=== PATIENT | female | born 1985 | race Hispanic/Latino ===

== ENCOUNTER 2018-08-22 04:45 | Emergency (ER) | payer SELFPAY ==
[2018-08-22 04:56] VITALS: BP 113/68
--- NOTE | 2018-08-22 06:46 | Emergency Department Report ---
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 there is no fever no chills no open wound MD Complaint: foot injury (blisters ) Onset/Timin -: days(s) Injury: Foot: Right, Left (blister less than 1 cm ) Place: work Severity: mild Severity scale (0 -10): 2 Improves With: rest Worsens With: weight bearing, movement, palpation Associated Symptoms: ambulatory, other (blister ) - Related Data Previous Rx's Medication Instructions Recorded Last Taken Type Naproxen 500 mg PO BID PRN #30 tablet 08/22/18 Unknown Rx Terbinafine HCl [Lamisil] 1 applicatio TP BID 14 Days #1 each 08/22/18 Unknown Rx Allergies Allergy/AdvReac Type Severity Reaction Status Date / Time No Known Allergies Allergy Unverified 08/22/18 04:50 ED Review of Systems ROS: Stated complaint: FOOT PAIN/NUMBNESS Other details as noted in HPI Constitutional: denies: chills, fever Eyes: denies: eye pain, eye discharge, vision change ENT: denies: ear pain, throat pain Respiratory: denies: cough, shortness of breath, wheezing Cardiovascular: denies: chest pain, palpitations Endocrine: no symptoms reported Gastrointestinal: denies: abdominal pain, nausea, diarrhea Genitourinary: denies: urgency, dysuria, discharge Musculoskeletal: other (blister bialt fee sole in step ). denies: back pain, joint swelling, arthralgia Skin: denies: rash, lesions Neurological: denies: headache, weakness, paresthesias Psychiatric: denies: anxiety, depression Hematological/Lymphatic: denies: easy bleeding, easy bruising ED Past Medical Hx - Past Medical History Previous Medical History?: No - Surgical History Past Surgical History?: Yes Additional Surgical History: ectopic - Social History Smoking Status: Current Every Day Smoker Substance Use Type: None - Medications Home Medications: Home Medications Medication Instructions Recorded Confirmed Last Taken Type Naproxen 500 mg PO BID PRN #30 tablet 08/22/18 Unknown Rx Terbinafine HCl [Lamisil] 1 applicatio TP BID 14 Days #1 each 08/22/18 Unknown Rx ED Physical Exam - General Limitations: No Limitations General appearance: alert, in no apparent distress - Head Head exam: Present: atraumatic, normocephalic - Eye Eye exam: Present: normal appearance - ENT ENT exam: Present: mucous membranes moist - Neck Neck exam: Present: normal inspection - Respiratory Respiratory exam: Present: normal lung sounds bilaterally. Absent: respiratory distress - Cardiovascular Cardiovascular Exam: Present: regular rate, normal rhythm. Absent: systolic murmur, diastolic murmur, rubs, gallop - GI/Abdominal GI/Abdominal exam: Present: soft, normal bowel sounds - Rectal Rectal exam: Present: deferred - Extremities Exam Extremities exam: Present: normal inspection, full ROM, tenderness (bisters bilat fee with tinea plantar instep no open wound distal pulse +2, ), normal capillary refill. Absent: pedal edema, joint swelling, calf tenderness - Back Exam Back exam: Present: normal inspection, full ROM - Neurological Exam Neurological exam: Present: alert, oriented X3 - Psychiatric Psychiatric exam: Present: normal affect, normal mood - Skin Skin exam: Present: warm, dry, intact, normal color, other (boot blisters as above ). Absent: rash ED Course Vital Signs 08/22/18 04:50 Temperature 97.8 F Pulse Rate 89 Respiratory 18 Rate Blood Pressure 113/68 O2 Sat by Pulse 97 Oximetry ED Lower Extremity MDM - Medical Decision Making bilat foot blister less than dime size 2x2 and tape on each pt is ambulatory advised to purchase mole skin covering, will tx tinea with antifungal, naproxen prn pain referral to podiatry , pt is currently ambulatory with steady gait at this time, will dc to home in stable condition at this time. Critical care attestation.: If time is entered above; I have spent that time in minutes in the direct care of this critically ill patient, excluding procedure time. ED Disposition Clinical Impression: Blister of foot Qualifiers: Encounter type: initial encounter Laterality: unspecified laterality Qualified Code(s): S90.829A - Blister (nonthermal), unspecified foot, initial encounter Tinea pedis Qualifiers: Laterality: bilateral Qualified Code(s): B35.3 - Tinea pedis Disposition: DC-01 TO HOME OR SELFCARE Is pt being admited?: No Does the pt Need Aspirin: No Condition: Stable Instructions: Antifungals (On the skin), Blister (ED) Additional Instructions: obtain otc mole skin for blister care Prescriptions: Naproxen 500 mg PO BID PRN #30 tablet PRN Reason: pain Terbinafine HCl [Lamisil] 1 applicatio TP BID 14 Days #1 each Referrals: LEANDER GUADARRAMA DPM [Referring] - 3-5 Days Forms: Work/School Release Form(ED) Time of Disposition: 06:48
== END 2018-08-22 06:54 | disposition home or self-care (01) ==
LOC: ED 04:45
DX: S90.821A Blister (nonthermal), right foot, initial encounter (principal); S90.822A Blister (nonthermal), left foot, initial encounter; B35.3 Tinea pedis; F17.200 Nicotine dependence, unspecified, uncomplicated; X58.XXXA Exposure to other specified factors, initial encounter; Y93.89 Activity, other specified; Y92.89 Other specified places as the place of occurrence of the external cause; Y99.8 Other external cause status
CPT/HCPCS: 99281

== ENCOUNTER 2018-12-28 04:38 | Emergency (ER) | payer SELFPAY ==
[2018-12-28 05:12] LABS: Basophils # (Auto) 0.1 K/mm3 (0.0-0.1); Basophils % (Auto) 0.8 % (0.0-1.8); Eosinophils # (Auto) 0.1 K/mm3 (0.0-0.4); Eosinophils % (Auto) 0.6 % (0.0-4.3); Hematocrit 43.3 % (30.3-42.9); Lymphocytes % (Auto) 40.7 % (13.4-35.0); Mean Corpuscular HGB Conc 35 % (30-34); Mean Corpuscular Volume 93 fl (79-97); Monocytes # (Auto) 0.5 K/mm3 (0.0-0.8); Monocytes % (Auto) 5.5 % (0.0-7.3); Platelet Count 328 K/mm3 (140-440); Red Blood Count 4.68 M/mm3 (3.65-5.03); Red Cell Distribution Width 12.8 % (13.2-15.2)
[2018-12-28 05:38] LABS: Alanine Aminotransferase 12 units/L (7-56); Albumin 4.5 g/dL (3.9-5); BUN/Creatinine Ratio 10; Blood Urea Nitrogen 9 mg/dL (7-17); Calcium 10.4 mg/dL (8.4-10.2); Hemolysis Index 10
[2018-12-28 06:00] LABS: Bilirubin,Urine SM (Negative); Blood,Urine NEG (Negative); Color,Urine Amber (Yellow); Mucus,Urine 3+ /HPF
[2018-12-28 06:06] LABS: Protein,Urine >500 mg/dL (Negative)
--- NOTE | 2018-12-28 06:15 | Emergency Department Report ---
ED General Adult HPI - General Chief complaint: Dizziness Stated complaint: SOB/DIZZINESS/NUMBNESS Time Seen by Provider: 12/28/18 06:13 Source: patient Mode of arrival: Ambulatory Limitations: No Limitations - History of Present Illness Initial comments: 33-year-old female who has been feeling weak for the past few days. It became more pronounced at work. She felt dizzy but she did not pass out. Force encouraged her to go to the emergency department. She states that she is not taking any sort of herbs for diuretics. Complained of some right flank pain and right hip pain unrelated to injury. She had no chest pain. No pleuritic type symptoms. She denies cough or shortness of breath. She's had no recent fever chills vomiting or diarrhea. She admits to poor by mouth intake lately. -: Gradual, days(s) Severity scale (0 -10): 0 Associated Symptoms: denies other symptoms, weakness - Related Data Previous Rx's Medication Instructions Recorded Last Taken Type Naproxen 500 mg PO BID PRN #30 tablet 08/22/18 Unknown Rx Terbinafine HCl [Lamisil] 1 applicatio TP BID 14 Days #1 each 08/22/18 Unknown Rx Nitrofurantoin [place]/M-Cryst 100 mg PO Q12HR #14 capsule 12/28/18 Unknown Rx [Macrobid CAP] traMADol [Ultram] 50 mg PO Q6HR PRN #7 tablet 12/28/18 Unknown Rx Allergies Allergy/AdvReac Type Severity Reaction Status Date / Time No Known Allergies Allergy Unverified 08/22/18 04:50 ED Review of Systems ROS: Stated complaint: SOB/DIZZINESS/NUMBNESS Other details as noted in HPI Constitutional: weakness. denies: chills, fever Eyes: denies: eye pain, eye discharge, vision change ENT: denies: ear pain, throat pain Respiratory: denies: cough, shortness of breath, wheezing Cardiovascular: denies: chest pain, palpitations Endocrine: no symptoms reported Gastrointestinal: denies: abdominal pain, nausea, diarrhea Genitourinary: as per HPI (right flank pain). denies: urgency, dysuria, discharge Musculoskeletal: denies: back pain, joint swelling, arthralgia Skin: denies: rash, lesions Neurological: denies: headache, weakness, paresthesias Psychiatric: denies: anxiety, depression Hematological/Lymphatic: denies: easy bleeding, easy bruising ED Past Medical Hx - Past Medical History Previous Medical History?: No - Surgical History Past Surgical History?: Yes Additional Surgical History: ectopic - Social History Smoking Status: Current Every Day Smoker Substance Use Type: Alcohol, Marijuana - Medications Home Medications: Home Medications Medication Instructions Recorded Confirmed Last Taken Type Naproxen 500 mg PO BID PRN #30 tablet 08/22/18 Unknown Rx Terbinafine HCl [Lamisil] 1 applicatio TP BID 14 Days #1 each 08/22/18 Unknown Rx Nitrofurantoin [place]/M-Cryst 100 mg PO Q12HR #14 capsule 12/28/18 Unknown Rx [Macrobid CAP] traMADol [Ultram] 50 mg PO Q6HR PRN #7 tablet 12/28/18 Unknown Rx ED Physical Exam - General Limitations: No Limitations General appearance: alert, in no apparent distress - Head Head exam: Present: atraumatic, normocephalic - Eye Eye exam: Present: normal appearance - ENT ENT exam: Present: mucous membranes dry (mildly) - Neck Neck exam: Present: normal inspection. Absent: tenderness, meningismus - Respiratory Respiratory exam: Present: normal lung sounds bilaterally. Absent: respiratory distress - Cardiovascular Cardiovascular Exam: Present: regular rate, normal rhythm. Absent: systolic murmur, diastolic murmur, rubs, gallop - GI/Abdominal GI/Abdominal exam: Present: soft, normal bowel sounds. Absent: distended, tenderness, guarding, rebound, rigid - Extremities Exam Extremities exam: Present: normal inspection, normal capillary refill. Absent: pedal edema, joint swelling, calf tenderness - Back Exam Back exam: Present: normal inspection. Absent: CVA tenderness (R), CVA tenderness (L), muscle spasm, paraspinal tenderness, vertebral tenderness - Neurological Exam Neurological exam: Present: alert, oriented X3, CN II-XII intact. Absent: motor sensory deficit - Psychiatric Psychiatric exam: Present: normal affect, normal mood - Skin Skin exam: Present: warm, dry, intact, normal color. Absent: rash ED Course Vital Signs 12/28/18 12/28/18 12/28/18 04:42 06:07 08:00 Temperature 97.5 F L 97.8 F 97.8 F Pulse Rate 115 H 99 H 81 Respiratory 20 16 13 Rate Blood Pressure 119/79 Blood Pressure 115/79 113/79 [Left] O2 Sat by Pulse 100 100 100 Oximetry ED Medical Decision Making - Lab Data Result diagrams: 12/28/18 04:55 12/28/18 04:55 Laboratory Results - last 24 hr 12/28/18 12/28/18 12/28/18 04:55 04:55 04:55 WBC 9.9 RBC 4.68 Hgb 15.0 H Hct 43.3 H MCV 93 MCH 32 MCHC 35 H RDW 12.8 L Plt Count 328 Lymph % (Auto) 40.7 H [place] % (Auto) 5.5 Eos % (Auto) 0.6 Baso % (Auto) 0.8 Lymph # 4.0 [place] # 0.5 Eos # 0.1 Baso # 0.1 Seg Neutrophils % 52.4 Seg Neutrophils # 5.2 Sodium 141 Potassium 3.0 L Chloride 102.1 Carbon Dioxide 21 L Anion Gap 21 BUN 9 Creatinine 0.9 Estimated GFR > 60 BUN/Creatinine Ratio 10 Glucose 106 H Calcium 10.4 H Total Bilirubin 0.70 AST 14 ALT 12 Alkaline Phosphatase 78 Total Protein 7.5 Albumin 4.5 Albumin/Globulin Ratio 1.5 HCG, Qual Negative Urine Color Urine Turbidity Urine pH Ur Specific [place] Urine Protein Urine Glucose (UA) Urine Ketones Urine Blood Urine Nitrite Urine Bilirubin Urine Urobilinogen Ur Leukocyte Esterase Urine WBC (Auto) Urine RBC (Auto) U Epithel Cells (Auto) Urine Mucus 12/28/18 05:15 WBC RBC Hgb Hct MCV MCH MCHC RDW Plt Count Lymph % (Auto) [place] % (Auto) Eos % (Auto) Baso % (Auto) Lymph # [place] # Eos # Baso # Seg Neutrophils % Seg Neutrophils # Sodium Potassium Chloride Carbon Dioxide Anion Gap BUN Creatinine Estimated GFR BUN/Creatinine Ratio Glucose Calcium Total Bilirubin AST ALT Alkaline Phosphatase Total Protein Albumin Albumin/Globulin Ratio HCG, Qual Urine Color [place] Urine Turbidity Slightly-cloudy Urine pH 5.0 Ur Specific [place] 1.039 H Urine Protein >500 Urine Glucose (UA) Neg Urine Ketones 20 Urine Blood Neg Urine Nitrite Neg Urine Bilirubin Sm Urine Urobilinogen 2.0 Ur Leukocyte Esterase Neg Urine WBC (Auto) 6.0 Urine RBC (Auto) 6.0 U Epithel Cells (Auto) 4.0 Urine Mucus 3+ - Radiology Data Radiology results: report reviewed (nap) Critical care attestation.: If time is entered above; I have spent that time in minutes in the direct care of this critically ill patient, excluding procedure time. ED Disposition Clinical Impression: Hypokalemia, Dehydration, Flank pain, chronic Proteinuria Qualifiers: Proteinuria type: unspecified Qualified Code(s): R80.9 - Proteinuria, unspecified UTI (urinary tract infection) Qualifiers: Urinary tract infection type: site unspecified Hematuria presence: with hematuria Qualified Code(s): N39.0 - Urinary tract infection, site not specified; R31.9 - Hematuria, unspecified Disposition: DC- TO HOME OR SELFCARE Is pt being admited?: No Does the pt Need Aspirin: No Condition: Stable Instructions: Hypokalemia (ED), Urinary Tract Infection in Women (ED), Dehydration (ED) Additional Instructions: Further evaluation with a primary care physician as necessary. Follow-up on urine culture. You have some protein in your urine. This should be rechecked. Medication as directed. Prescriptions: Nitrofurantoin [place]/M-Cryst [Macrobid CAP] 100 mg PO Q12HR #14 capsule traMADol [Ultram] 50 mg PO Q6HR PRN #7 tablet PRN Reason: Pain Referrals: MELVIN AMIN MD [Primary Care Provider] - 2-3 Days Time of Disposition: 08:40
[2018-12-28 06:25] LABS: Ictotest,Urine Negative (Negative)
[2018-12-28] MEDS ORDERED: NACL 0.9% 1000 ML 1,000 ML IV ONE (06:39)
[2018-12-28] MEDS ORDERED: K-DUR PO ONE (06:39)
[2018-12-28 07:28] LABS: INR 1.14 (0.87-1.13); Partial Thromboplastin Time 25.2 Sec. (24.2-36.6)
[2018-12-28 08:04] VITALS: BP 113/79
--- NOTE | 2018-12-28 08:12 | Ultrasound Report ---
PROCEDURE: US PELVIC COMPLETE, US TRANSVAGINAL TECHNIQUE: Transabdominal and transvaginal grayscale and color Doppler pelvic ultrasound HISTORY: r flank RLQ pain COMPARISONS: None FINDINGS: Anteverted uterus measures 7.2 x 4.2 x 4.7 cm. Myometrium is within normal limits. Endometrium is travis ogeneous and measures 5 mm in thickness. Small functional cysts are noted in both ovaries, which are otherwise unremarkable and measures 3.3 x 1.3 x 2.4 cm on the right and 2.9 x 1.5 x 2.5 cm in the left. Normal color Doppler evaluation of the ovaries. IMPRESSION: Unremarkable pelvic ultrasound. Specifically, the right ovary appears normal. This document is electronically signed by Ramana Hammer MD., December 28 2018 08:10:24 AM ET
--- NOTE | 2018-12-28 08:24 | Ultrasound Report ---
PROCEDURE: US RENAL BILAT TECHNIQUE: Grayscale and color Doppler ultrasound evaluation of the kidneys HISTORY: r flank RLQ pain COMPARISONS: None FINDINGS: Examination is partially compromised by limited acoustic window The right kidney measures 9.7 cm in the left kidney measures 9.4 cm in length. No hydronephrosis. Wit hin the right lower pole cortex there is a 4 mm nonshadowing echogenic focus, which may represent a s mall angiomyolipoma or some ectopic fat, both of which are of no clinical consequence. No nephrolithi asis identified. No abdominal ascites or free fluid in Contreras's pouch. The bladder is incompletely distended. IMPRESSION: No hydronephrosis or nephrolithiasis. This document is electronically signed by Ramana Hammer MD., December 28 2018 08:22:35 AM ET
== END 2018-12-28 09:21 | disposition home or self-care (01) ==
LOC: ED 04:38
DX: E87.6 Hypokalemia (principal); E86.0 Dehydration; N39.0 Urinary tract infection, site not specified
CPT/HCPCS: 36415; 76770; 76830; 76856; 80053; 81001; 83735; 84702; 84703; 85025; 85610; 85730; 87086; 93005; 93010; 96360; 96361; 99284; J7030

== ENCOUNTER 2019-01-15 00:06 | Emergency (ER) | payer OTHER ==
[2019-01-15] MEDS ORDERED: BACTRIM DS PO ONE (01:34)
[2019-01-15] MEDS ORDERED: TYLENOL #3 PO ONE (01:35)
[2019-01-15] MEDS ORDERED: TORADOL IM ONE (01:35)
--- NOTE | 2019-01-15 02:02 | Emergency Department Report ---
ED General Adult HPI - General Chief complaint: Skin Rash Stated complaint: INSECT BITE LEG AND ARMS Time Seen by Provider: 01/15/19 01:30 Source: patient Mode of arrival: Ambulatory Limitations: No Limitations - History of Present Illness Initial comments: Patient is a 33-year-old white female with no past medical history who presents to the ED with complaint of acute onset persistent painful itchy erythematous maculopapular nonfluctuant rash with swelling on that thigh and hip for the last 2 days after being bitten by an unknown insect. Patient denies fever, chills, nausea, vomiting, dizziness, headache, chest pain or shortness of breath. Patient states that the pain is worse with any palpation or ambulation. MD Complaint: Painful rash on right leg -: Sudden, days(s) (2) Location: lower extremity (right thigh) Radiation: non-radiation Severity scale (0 -10): 8 Quality: burning, aching, sharp Consistency: constant Improves with: none Worsens with: movement Associated Symptoms: denies other symptoms, rash (erythematous maculopapular nonfluctuant rash). denies: confusion, chest pain, cough, diaphoresis, fever/chills, headaches, loss of appetite, malaise, nausea/vomiting, shortness of breath, syncope, weakness Treatments Prior to Arrival: none - Related Data Previous Rx's Medication Instructions Recorded Last Taken Type Naproxen 500 mg PO BID PRN #30 tablet 08/22/18 Unknown Rx Terbinafine HCl [Lamisil] 1 applicatio TP BID 14 Days #1 each 08/22/18 Unknown Rx Nitrofurantoin [place]/M-Cryst 100 mg PO Q12HR #14 capsule 12/28/18 Unknown Rx [Macrobid CAP] Ibuprofen [Motrin] 800 mg PO Q8HR PRN #24 tablet 01/15/19 Unknown Rx Sulfamethoxazole/Trimethoprim 1 each PO Q12H #20 tablet 01/15/19 Unknown Rx [Bactrim DS TAB] traMADol [Ultram 50 MG tab] 50 mg PO Q6HR PRN #14 tablet 01/15/19 Unknown Rx Allergies Allergy/AdvReac Type Severity Reaction Status Date / Time No Known Allergies Allergy Unverified 08/22/18 04:50 ED Review of Systems ROS: Stated complaint: INSECT BITE LEG AND ARMS Other details as noted in HPI Comment: All other systems reviewed and negative Constitutional: denies: chills, fever Eyes: denies: eye pain, eye discharge, vision change ENT: denies: ear pain, throat pain Respiratory: denies: cough, shortness of breath, wheezing Cardiovascular: denies: chest pain, palpitations Endocrine: no symptoms reported Gastrointestinal: denies: abdominal pain, nausea, diarrhea Genitourinary: denies: urgency, dysuria, discharge Musculoskeletal: denies: back pain, joint swelling, arthralgia Skin: rash (erythematous maculopapular nonfluctuant rash on right thigh), change in color (erythematous maculopapular rash). denies: lesions Neurological: denies: headache, weakness, paresthesias Psychiatric: denies: anxiety, depression Hematological/Lymphatic: denies: easy bleeding, easy bruising ED Past Medical Hx - Past Medical History Previous Medical History?: No - Surgical History Past Surgical History?: Yes Additional Surgical History: ectopic - Social History Smoking Status: Current Every Day Smoker - Medications Home Medications: Home Medications Medication Instructions Recorded Confirmed Last Taken Type Naproxen 500 mg PO BID PRN #30 tablet 08/22/18 Unknown Rx Terbinafine HCl [Lamisil] 1 applicatio TP BID 14 Days #1 each 08/22/18 Unknown Rx Nitrofurantoin [place]/M-Cryst 100 mg PO Q12HR #14 capsule 12/28/18 Unknown Rx [Macrobid CAP] Ibuprofen [Motrin] 800 mg PO Q8HR PRN #24 tablet 01/15/19 Unknown Rx Sulfamethoxazole/Trimethoprim 1 each PO Q12H #20 tablet 01/15/19 Unknown Rx [Bactrim DS TAB] traMADol [Ultram 50 MG tab] 50 mg PO Q6HR PRN #14 tablet 01/15/19 Unknown Rx ED Physical Exam - General Limitations: No Limitations General appearance: alert, in no apparent distress - Head Head exam: Present: atraumatic, normocephalic, normal inspection - Eye Eye exam: Present: normal appearance, PERRL, EOMI Pupils: Present: normal accommodation - ENT ENT exam: Present: normal exam, normal orophraynx, mucous membranes moist, TM's normal bilaterally, normal external ear exam - Neck Neck exam: Present: normal inspection, full ROM. Absent: tenderness - Respiratory Respiratory exam: Present: normal lung sounds bilaterally. Absent: respiratory distress, wheezes, rales, rhonchi, chest wall tenderness, accessory muscle use, prolonged expiratory - Cardiovascular Cardiovascular Exam: Present: normal rhythm, tachycardia, normal heart sounds. Absent: systolic murmur, diastolic murmur, rubs, gallop - GI/Abdominal GI/Abdominal exam: Present: soft, normal bowel sounds. Absent: distended, r ebound, hyperactive bowel sounds, hypoactive bowel sounds, organomegaly - Rectal Rectal exam: Present: deferred - Extremities Exam Extremities exam: Present: normal inspection, full ROM, tenderness (Palpable right lateral thigh due to a swollen erythematous maculopapular nonfluctuant rash ), normal capillary refill. Absent: calf tenderness - Back Exam Back exam: Present: normal inspection, full ROM. Absent: CVA tenderness (L), muscle spasm, paraspinal tenderness - Neurological Exam Neurological exam: Present: alert, oriented X3, CN II-XII intact, normal gait, reflexes normal - Psychiatric Psychiatric exam: Present: normal affect, normal mood - Skin Skin exam: Present: warm, dry, intact, rash (erythematous maculopapular nonfluctuant rash on the right thigh), erythema ED Course Vital Signs 01/15/19 00:09 Temperature 98.1 F Pulse Rate 110 H Respiratory 18 Rate Blood Pressure 114/77 O2 Sat by Pulse 97 Oximetry - Reevaluation(s) Reevaluation #1: 01/15/19 02:08 Patient is alert and oriented 3 and is not in distress but anxious and ta chycardic in triage. Patient was treated with pain in the ED and also given initial oral antibiotics. Patient was discharged home on pain medications and advised to follow up with her primary care physician in 7 to days for reevaluation or return to the ED immediately if Symptoms get worse. Patient's symptoms are likely due to cellulitis from unknown insect bite. ED Medical Decision Making - Medical Decision Making Patient is alert and oriented 3 and is not in distress but anxious and tachycardic in triage. Patient was treated with pain in the ED and also given initial oral antibiotics. Patient was discharged home on pain medications and advised to follow up with her primary care physician in 7 to days for reevaluation or return to the ED immediately if Symptoms get worse. Patient's symptoms are likely due to cellulitis from unknown insect bite. - Differential Diagnosis Cellulitis of right leg; abscess of right leg, acute allergic reaction Critical care attestation.: If time is entered above; I have spent that time in minutes in the direct care of this critically ill patient, excluding procedure time. ED Disposition Clinical Impression: Cellulitis of right thigh Insect bite of right lower extremity Qualifiers: Encounter type: initial encounter Qualified Code(s): S80.861A - Insect bite (nonvenomous), right lower leg, initial encounter; W57.XXXA - Bitten or stung by nonvenomous insect and other nonvenomous arthropods, initial encounter Disposition: TO HOME OR SELFCARE Is pt being admited?: No Does the pt Need Aspirin: No Condition: Stable Instructions: Cellulitis (ED), Insect Bite or Sting (ED) Additional Instructions: Take medications at home, drink plenty of fluids and follow up with your primary care physician in 7-10 days for reevaluation. Return to the ED immediately if symptoms get worse. Prescriptions: Sulfamethoxazole/Trimethoprim [Bactrim DS TAB] 1 each PO Q12H #20 tablet Ibuprofen [Motrin] 800 mg PO Q8HR PRN #24 tablet PRN Reason: Pain , Severe (7-10) traMADol [Ultram 50 MG tab] 50 mg PO Q6HR PRN #14 tablet PRN Reason: Pain Referrals: [facility] [Outside] - 3-5 Days Time of Disposition: 01:59 Print Language: DIVEHI
[2019-01-15 02:49] VITALS: BP 110/78
== END 2019-01-15 03:00 | disposition home or self-care (01) ==
LOC: ED 00:06
DX: S80.861A Insect bite (nonvenomous), right lower leg, initial encounter (principal); W57.XXXA Bitten or stung by nonvenomous insect and other nonvenomous arthropods, initial encounter; Y93.9 Activity, unspecified; Y92.89 Other specified places as the place of occurrence of the external cause
CPT/HCPCS: 96372; 99282; J1885

== ENCOUNTER 2020-02-01 23:20 | Emergency (ER) | payer SELFPAY ==
[2020-02-01 23:29] VITALS: BP 117/92
[2020-02-01 23:53] LABS: Basophils # (Auto) 0.1 K/mm3 (0.0-0.1); Basophils % (Auto) 1.3 % (0.0-1.8); Eosinophils # (Auto) 0.1 K/mm3 (0.0-0.4); Hemoglobin 13.6 gm/dl (10.1-14.3); Lymphocytes # (Auto) 2.7 K/mm3 (1.2-5.4); Lymphocytes % (Auto) 29.6 % (13.4-35.0); Mean Corpuscular HGB Conc 34 % (30-34); Mean Corpuscular Volume 95 fl (79-97); Monocytes # (Auto) 0.4 K/mm3 (0.0-0.8); Monocytes % (Auto) 4.2 % (0.0-7.3); Platelet Count 374 K/mm3 (140-440); Red Blood Count 4.22 M/mm3 (3.65-5.03); Red Cell Distribution Width 13.7 % (13.2-15.2)
== END 2020-02-02 00:02 | disposition left against medical advice (07) ==
LOC: ED 23:20
DX: O20.8 Other hemorrhage in early pregnancy (principal); Z3A.01 Less than 8 weeks gestation of pregnancy
CPT/HCPCS: 36415; 84702; 85025; 86900; 86901

== ENCOUNTER 2020-10-28 11:10 | Emergency (ER) | payer MEDICAID ==
[2020-10-28 12:11] VITALS: BP 138/87
--- NOTE | 2020-10-28 12:28 | Event Note ---
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 Further treatment and workup at subsequent clinical providers discretion. Patient/guardian urged not to elope from the ED as their condition may be serious if not clinically assessed and managed. Initial orders include: labs, UA
[2020-10-28 14:17] LABS: Basophils % (Auto) 0.4 % (0.0-1.8); Eosinophils % (Auto) 0.5 % (0.0-4.3); Hematocrit 36.5 % (30.3-42.9); Hemoglobin 11.8 gm/dl (10.1-14.3); Lymphocytes # (Auto) 2.4 K/mm3 (1.2-5.4); Lymphocytes % (Auto) 31.9 % (13.4-35.0); Mean Corpuscular HGB Conc 32 % (30-34); Mean Corpuscular Volume 87 fl (79-97); Monocytes # (Auto) 0.4 K/mm3 (0.0-0.8); Monocytes % (Auto) 5.8 % (0.0-7.3); Platelet Count 350 K/mm3 (140-440); Red Cell Distribution Width 15.8 % (13.2-15.2)
[2020-10-28 14:29] LABS: Alanine Aminotransferase 49 units/L (7-56); Blood Urea Nitrogen 4 mg/dL (7-17); Hemolysis Index 2
[2020-10-28 14:36] LABS: Bilirubin,Urine NEG (Negative); Blood,Urine MOD (Negative); Color,Urine Yellow (Yellow); Mucus,Urine 1+ /HPF; Urobilinogen,Urine < 2.0 mg/dL (<2.0)
[2020-10-28 14:38] LABS: WBC,Urine > 182.0 /HPF (0.0-6.0)
[2020-10-28 14:48] LABS: BUN/Creatinine Ratio 8
== END 2020-10-28 16:53 | disposition home or self-care (01) ==
LOC: ED 11:10
DX: R10.30 Lower abdominal pain, unspecified (principal); M54.5 Low back pain; Z53.21 Procedure and treatment not carried out due to patient leaving prior to being seen by health care provider
CPT/HCPCS: 36415; 80053; 81001; 84702; 85025